=== PATIENT | male | born 1970 | race Caucasian/White ===

== ENCOUNTER 2024-03-02 06:14 | Day surgery (SDC) | payer BC, SELFPAY ==
[2024-03-02 09:23] VITALS: BP 151/107
[2024-03-02 09:28] VITALS: BMI 27.3
[2024-03-02 09:30] VITALS: BP 128/93
[2024-03-02 09:40] VITALS: BMI 27.3
[2024-03-02 10:50] VITALS: BP 102/80
[2024-03-02 11:00] VITALS: BP 131/98
[2024-03-02 11:15] VITALS: BP 125/106
[2024-03-02 11:21] VITALS: BP 139/99
== END 2024-03-02 11:40 | disposition home or self-care (01) ==
LOC: GI 06:14
PROVIDERS: ATTENDING PHYSICIAN Internal Medicine Gastroenterology
DX: Z12.11 Encounter for screening for malignant neoplasm of colon (principal); D12.3 Benign neoplasm of transverse colon; K57.30 Diverticulosis of large intestine without perforation or abscess without bleeding; K64.8 Other hemorrhoids
CPT/HCPCS: 45385; 88305